=== PATIENT | male | born 1990 | race African-American/Black ===

== ENCOUNTER 2017-03-19 11:47 | Emergency (ER) | payer SELFPAY ==
[2017-03-19 11:52] VITALS: BP 147/72
[2017-03-19] MEDS ORDERED: IPRATROPIUM/ALBUTEROL 0.5-2.5 MG/3 ML AMPUL NEB ONE (13:02)
--- NOTE | 2017-03-19 13:04 | ER Document Report ---
ED General - General Chief Complaint: Flu Symptoms Stated Complaint: FLU LIKE SYMPTOMS Mode of Arrival: Ambulatory Information source: Patient, Parent TRAVEL OUTSIDE OF THE [place] IN LAST 30 DAYS: No - HPI Notes: 26 yr old with complaints of productive cough, myalgias, nasa congestion, ST x 1 week. Denies fevers, reports chills. denies any rashes. otc meds tried without relief. smoker. rashes. no flu shot. worse with time, nothing makes better. this provider did a rapid assessment of this patient, pt will be fully evaluated by another provider - Related Data Allergies/Adverse Reactions: No Known Allergies Allergy (Verified 03/19/17 11:47) Past Medical History - General Information source: Patient - Social History Smoking Status: Current Every Day Smoker Family History: None Review of Systems - Review of Systems Constitutional: No symptoms reported EENT: See HPI Cardiovascular: No symptoms reported Respiratory: No symptoms reported Gastrointestinal: No symptoms reported Genitourinary: No symptoms reported Male Genitourinary: No symptoms reported Musculoskeletal: No symptoms reported Skin: No symptoms reported Hematologic/Lymphatic: No symptoms reported Neurological/Psychological: No symptoms reported Physical Exam - Vital signs Vitals: Temp Pulse Resp BP Pulse Ox 98.9 F 91 18 147/72 H 96 03/19/17 11:50 03/19/17 11:50 03/19/17 11:50 03/19/17 11:50 03/19/17 11:50 - General General appearance: Appears well In distress: None - HEENT Nasal: Clear rhinorrhea - boggy turbinates - Respiratory Respiratory status: No respiratory distress Chest status: Nontender Breath sounds: Decreased air movement Chest palpation: Normal - Cardiovascular Rhythm: Regular Heart sounds: Normal auscultation Murmur: No Course - Vital Signs Vital signs: Temp Pulse Resp BP Pulse Ox 98.9 F 91 18 147/72 H 96 03/19/17 11:50 03/19/17 11:50 03/19/17 11:50 03/19/17 11:50 03/19/17 11:50 Discharge - Discharge Clinical Impression: Viral syndrome, Cough Condition: Good Disposition: HOME, SELF-CARE Instructions: Viral Syndrome ([facility]), Cough Suppressant & Expectorant Medications Additional Instructions: Viral Syndrome The physician has diagnosed a viral infection. Viruses not only cause "colds," but can cause many different symptoms including generalized aching, fever, headache, cough, diarrhea, nausea, vomiting, and fatigue. The treatment, for the most part, is simply relief of symptoms. This means that antibiotics are usually not given. Rest, fluids, pain medications and, occasionally, medication for the specific symptoms that are most bothersome will be prescribed. Use good handwashing to avoid passing the virus to others. Shared toys should be cleaned with disinfectant. Clean the toilets, sinks, and counter surfaces in bathrooms. Launder clothing in hot water. Contact the physician if you develop any new or unusual symptoms such as severe headache, stiff neck, high fever, chest pain, productive cough, or shortness of breath. You should be rechecked if you don't see marked improvement within seven to 10 days. Return immediately for any new or worsening symptoms. Follow up with primary care provider, call tomorrow to make followup appointment. Prescriptions: Benzonatate [Tessalon Perle 100 mg Capsule] 100 mg PO Q8HP PRN #40 cap PRN Reason: Albuterol Sulfate [Ventolin Hfa] 1 - 2 puff IH Q4 PRN #1 [id number] PRN Reason:
--- NOTE | 2017-03-19 13:46 | RADIOLOGY REPORT (SQ) ---
EXAM DESCRIPTION: CHEST PA/LAT COMPLETED DATE/TIME: 03/19/2017 1:17 pm REASON FOR STUDY: cough x 1 week with chills, fatigue COMPARISON: None. EXAM PARAMETERS: NUMBER OF VIEWS: two views TECHNIQUE: Digital Frontal and Lateral radiographic views of the chest acquired. RADIATION DOSE: NA LIMITATIONS: none FINDINGS: LUNGS AND PLEURA: No opacities, masses or pneumothorax. No pleural effusion. MEDIASTINUM AND HILAR STRUCTURES: No masses or contour abnormalities. HEART AND VASCULAR STRUCTURES: Heart normal size. No evidence for failure. BONES: No acute findings. HARDWARE: None in the chest. OTHER: No other significant finding. IMPRESSION: NO SIGNIFICANT RADIOGRAPHIC FINDING IN THE CHEST. TECHNICAL DOCUMENTATION: JOB ID: [id number] [employer]- All Rights Reserved
[2017-03-19 14:25] LABS: A TYPE INFLUENZA AG NEGATIVE (NEGATIVE); B INFLUENZA AG NEGATIVE (NEGATIVE)
== END 2017-03-19 14:37 | disposition home or self-care (01) ==
LOC: ER 11:47
DX: B34.9 Viral infection, unspecified (principal); R05 Cough; M79.1 Myalgia; R09.81 Nasal congestion; F17.200 Nicotine dependence, unspecified, uncomplicated
CPT/HCPCS: 94640; 99284; 87804; 71046; J7620

== ENCOUNTER 2019-02-16 16:10 | Emergency (ER) | payer SELFPAY ==
[2019-02-16 16:22] VITALS: BP 140/93
[2019-02-16] MEDS ORDERED: METOCLOPRAMIDE HCL ORAL SOLN 10 MG/10 ML UDCUP PO ONE (18:10)
[2019-02-16] MEDS ORDERED: MAG HYDROX/AL HYDROX/SIMETH SUSP 30 ML UDCUP PO ONE (18:10)
[2019-02-16] MEDS ORDERED: LIDOCAINE 2% VISCOUS SOLN 20 ML UDCUP PO ONE (18:10)
--- NOTE | 2019-02-16 18:13 | ER Document Report ---
ED Medical Screen (RME) - General Chief Complaint: Abdominal Pain Stated Complaint: STOMACH PAINS Time Seen by Provider: 02/16/19 17:59 Notes: Patient is a 28-year-old male presents emergency department with a chief complaint of epigastric pain. Patient reports he has had epigastric pain for about 2 weeks which is intermittent. Patient reports he was having some constipation in which he did take an enema for which did produce a bowel move ment yesterday. Patient reports he continues to have the abdominal pain. Patient reports that certain foods do worsen the epigastric pain in certain beverages or worsen as such as caffeine and soda. Patient states he does not drink alcohol but does smoke marijuana heavily and multiple times per day. Patient reports nausea and some episodes of vomiting. Patient denies fever. Patient reports earlier today he did vomit twice. TRAVEL OUTSIDE OF THE [place] IN LAST 30 DAYS: No - Related Data Allergies/Adverse Reactions: No Known Allergies Allergy (Verified 03/19/17 11:47) Past Medical History - Social History Frequency of alcohol use: None Drug Abuse: Marijuana Renal/ Medical History: Denies: Hx Peritoneal Dialysis Physical Exam - Vital signs Vitals: Temp Pulse Resp BP Pulse Ox 98.4 F 90 16 140/93 H 100 02/16/19 16:21 02/16/19 16:21 02/16/19 16:21 02/16/19 16:21 02/16/19 16:21 - Abdominal Inspection: Normal Distension: No distension Bowel sounds: Normal Tenderness: Tender - epigastric pain Organomegaly: No organomegaly Course - Re-evaluation Re-evalutation: 02/16/19 18:12 I have greeted and performed a rapid initial assessment of this patient. A comprehensive ED assessment and evaluation of the patient, analysis of test results and completion of the medical decision making process will be conducted by additional ED providers. - Vital Signs Vital signs: Temp Pulse Resp BP Pulse Ox 98.4 F 90 16 140/93 H 100 02/16/19 16:21 02/16/19 16:21 02/16/19 16:21 02/16/19 16:21 02/16/19 16:21
[2019-02-16 18:57] LABS: APPEARANCE,URINE SLIGHTLY-CLOUDY; BILIRUBIN,URINE NEGATIVE (NEGATIVE); COLOR,URINE YELLOW; GLUCOSE, URINE NEGATIVE (NEGATIVE); KETONES,URINE 20 mg/dL (NEGATIVE); LEUKOCYTE ESTERASE,URINE NEGATIVE (NEGATIVE); NITRITE,URINE NEGATIVE (NEGATIVE); PROTEIN,URINE 30 mg/dL (NEGATIVE); URINE SPECIFIC GRAVITY 1.026
[2019-02-16 19:01] LABS: ABSOLUTE BASOPHILS # (AUTO) 0.1 10^3/uL (0.0-0.2); ABSOLUTE EOSINOPHILS # (AUTO) 0.1 10^3/uL (0.0-0.6); ABSOLUTE LYMPHOCYTES (AUTO) 2.8 10^3/uL (0.5-4.7); ABSOLUTE MONOCYTES (AUTO) 0.6 10^3/uL (0.1-1.4); ABSOLUTE NEUT (AUTO) 4.9 10^3/uL (1.7-8.2); BASOPHILS % (AUTO) 0.7 % (0-2); EOSINOPHILS % (AUTO) 1.5 % (0-6); HEMATOCRIT 48.4 % (37.9-51.0); HEMOGLOBIN 16.6 g/dL (13.5-17.0); LYMPHOCYTES % (AUTO) 32.7 % (13-45); MEAN CORPUSCULAR HEMOGLOBIN 29.1 pg (27.0-33.4); MEAN CORPUSCULAR HGB CONC 34.3 g/dL (32.0-36.0); MEAN CORPUSCULAR VOLUME 85 fl (80-97); MONOCYTES % (AUTO) 6.8 % (3-13); PLATELET COUNT 254 10^3/uL (150-450); RED BLOOD COUNT 5.71 10^6/uL (4.35-5.55); RED CELL DISTRIBUTION WIDTH 13.5 % (11.5-14.0); SEGMENTED NEUTROPHILS % (AUTO) 58.3 % (42-78); TOTAL CELLS COUNTED % (AUTO) 100 %; WHITE BLOOD COUNT 8.4 10^3/uL (4.0-10.5)
[2019-02-16 19:15] LABS: ALKALINE PHOSPHATASE 73 U/L (38-126); ANION GAP 12 (5-19); ASPARTATE AMINO TRANSFERASE 22 U/L (17-59); BILIRUBIN,DIRECT 0.1 mg/dL (0.0-0.4); BILIRUBIN,TOTAL 0.5 mg/dL (0.2-1.3); BLOOD UREA NITROGEN 13 mg/dL (7-20); CALCIUM 9.7 mg/dL (8.4-10.2); CARBON DIOXIDE 29 mmol/L (22-30); CHLORIDE 97 mmol/L (98-107); GLUCOSE 96 mg/dL (75-110); POTASSIUM 4.4 mmol/L (3.6-5.0); TOTAL PROTEIN 7.2 g/dL (6.3-8.2)
[2019-02-16] MEDS ORDERED: DICYCLOMINE HCL 20 MG TABLET PO ONE (19:55)
--- NOTE | 2019-02-16 20:00 | ER Document Report ---
ED GI/ - General Chief Complaint: Abdominal Pain Stated Complaint: STOMACH PAINS Time Seen by Provider: 02/16/19 17:59 Notes: Patient is blind of thePatient is a 28-year-old male who presents to the emergency department with a chief complaint of epigastric pain. Patient states that his pain has been going on for the past 2 weeks. It is intermittent pain. Its dates that is worse after eating. Patient states he feels better after receiving GI cocktail in triage. Patient smokes marijuana daily. TRAVEL OUTSIDE OF THE [place] IN LAST 30 DAYS: No - Related Data Allergies/Adverse Reactions: No Known Allergies Allergy (Verified 03/19/17 11:47) Past Medical History - Social History Smoking Status: Current Every Day Smoker Frequency of alcohol use: None Drug Abuse: Marijuana Family History: None Patient has suicidal ideation: No Patient has homicidal ideation: No Renal/ Medical History: Denies: Hx Peritoneal Dialysis Review of Systems - Review of Systems Notes: REVIEW OF SYSTEMS: CONSTITUTIONAL : Denies recent illness. Denies recent unintentional weight loss. Denies fever, chills, or sweats. EENT: Denies eye, ear, throat, or mouth pain, discharge, or symptoms. Denies nasal or sinus congestion. CARDIOVASCULAR: Denies chest pain. RESPIRATORY: Denies shortness of breath, cough, congestion, difficulty breathing, or wheezing. GASTROINTESTINAL: See HPI. GENITOURINARY: Denies difficulty urinating, burning, blood in urine, urgency or frequency. MUSCULOSKELETAL: Denies neck and back pain. Denies joint pain or swelling. SKIN: Denies rash, itchiness, or lesions HEMATOLOGIC : Denies easy bruising or bleeding. LYMPHATIC: Denies swollen, painful, enlarged glands. NEUROLOGICAL: Denies no numbness or tingling denies weakness. Denies headache. Denies altered mental status. Denies alteration in speech. PSYCHIATRIC: Denies stress, anxiety, alteration in sleep patterns, or depression. All other systems reviewed and negative. Physical Exam - Vital signs Vitals: Temp Pulse Resp BP Pulse Ox 98.4 F 90 16 140/93 H 100 02/16/19 16:21 02/16/19 16:21 02/16/19 16:21 02/16/19 16:21 02/16/19 16:21 - Notes Notes: PHYSICAL EXAMINATION: GENERAL: Appears well, healthy, well-nourished, no acute distress. HEAD: Normocephalic, atraumatic. EYES: PERRL, conjunctiva normal, all extraocular movements intact, sclera nonicteric ENT: Moist mucous membranes. NECK: Supple, no noticeable swelling, redness, rash. Normal range of motion. LUNGS: Equal breath sounds bilaterally and clear to auscultation. No wheezes rales or rhonchi. CARDIOVASCULAR: S1-S2, regular rate, regular rhythm. Radial pulses 2+, normal. ABDOMEN: Normoactive bowel sounds. Soft, tender mid upper abdomen, no guarding, no rebound tenderness, and no masses palpated. EXTREMITIES: Normal strength and range of motion, no pitting or edema. No cyanosis. NEUROLOGICAL: Moves all extremities upon command. Strength 5/5 in all extremities. PSYCH: Normal mood, normal affect. SKIN: Warm, dry. No rash, lesions, ulcerations noted. Normal skin turgor. Course - Re-evaluation Re-evalutation: Patient presents with epigastric abdominal pain with associated reflux symptoms most consistent with likely gastritis. Patient has no focal abdominal tenderness on examination. Lipase is normal. No LFT changes. Based on history and exam, I do not suspect ACS, pulmonary embolus, SBO, mesenteric ischemia, acute pancreatitis, biliary pathology, or an abdominal aortic dissection. Patient has had improvement of symptoms here with a GI cocktail. At this time will discharge with return precautions and follow-up recommendations. Verbal discharge instructions given a the bedside and opportunity for questions given. Medication warnings reviewed. Patient is in agreement with this plan and has verbalized understanding of return precautions and the need for primary care follow-up in the next 24-72 hours. - Vital Signs Vital signs: Temp Pulse Resp BP Pulse Ox 98.4 F 90 16 140/93 H 100 02/16/19 16:21 02/16/19 16:21 02/16/19 16:21 02/16/19 16:21 02/16/19 16:21 - Laboratory Result Diagrams: 02/16/19 18:29 02/16/19 18:29 Laboratory results interpreted by me: 02/16/19 02/16/19 02/16/19 18:29 18:29 18:29 RBC 5.71 H Chloride 97 L Urine Protein 30 H Urine Ketones 20 H Urine Urobilinogen 4.0 H Discharge - Discharge Clinical Impression: Nausea Gastritis Qualifiers: Gastritis type: unspecified gastritis Chronicity: acute Gastritis bleeding: without bleeding Qualified Code(s): K29.00 - Acute gastritis without bleeding Abdominal pain Qualifiers: Abdominal location: epigastric Qualified Code(s): R10.13 - Epigastric pain Condition: Stable Disposition: HOME, SELF-CARE Additional Instructions: Your symptoms appear to be most consistent with stomach or upper intestinal irritation. Please begin taking famotidine 20 mg in the morning and 20 mg at night. This medicine can be purchased directly [id number]. You are also being sent home with Bentyl, medication for pain. You are also being sent home with Reglan, medication for nausea. You are also being sent home with Carafate, medication to help coat your stomach. You may also take medicine such as Pepto- Bismol or Tums to assist with your pain. Please return to emergency department immediately if you have worsening of your pain, shortness of breath, vomiting, become unable to exert yourself due to pain or difficulty breathing, you pass out, or have any pain that radiates into your arms, jaw, or back. Please also return if you have any additional symptoms that are concerning to you. All up with 1 of the clinics below. Please slowly stop smoking or marijuana. Prescriptions: Dicyclomine HCl [Bentyl 20 mg Tablet] 20 mg PO QIDP PRN #20 tablet PRN Reason: Sucralfate [Carafate 1 gm Tablet] 1 gm PO ACHS #120 tablet Famotidine [Pepcid 20 mg Tablet] 20 mg PO BID #60 tablet Metoclopramide HCl [Reglan 10 mg Tablet] 1 - 2 tab PO ASDIR PRN #25 tablet PRN Reason:
== END 2019-02-16 20:22 | disposition home or self-care (01) ==
LOC: ER 16:10
DX: K29.00 Acute gastritis without bleeding (principal); R11.0 Nausea; R10.13 Epigastric pain; R10.816 Epigastric abdominal tenderness; F12.10 Cannabis abuse, uncomplicated; F17.200 Nicotine dependence, unspecified, uncomplicated
CPT/HCPCS: 99284; 36415; 83690; 85025; 80053; 81001; J3490 ×2

== ENCOUNTER 2019-09-26 19:54 | Emergency (ER) | payer SELFPAY ==
--- NOTE | 2019-09-26 20:29 | ER Document Report ---
ED Medical Screen (RME) - General Chief Complaint: Syncope Stated Complaint: HEAD INJURY Time Seen by Provider: 09/26/19 20:20 Notes: Patient is a 28-year-old male, up-to-date with his immunizations who presents to the emergency department after syncopal episode. Patient states that he feels he got overheated while he was fishing and fell back and hit his head on metal box. Patient states that he feels he lost a little bit of consciousness, but states "not for very long." Patient was under the influence of marijuana today. Patient states he is up-to-date on his tetanus vaccine. Exam: Laceration noted to posterior head. I have greeted and performed a rapid initial assessment of this patient. A comprehensive ED assessment and evaluation of the patient, analysis of test results and completion of medical decision making process will be conducted by an additional ED providers. TRAVEL OUTSIDE OF THE [place] IN LAST 30 DAYS: No - Related Data Allergies/Adverse Reactions: No Known Allergies Allergy (Verified 09/26/19 20:20) Home Medications: denies Past Medical History - Social History Chew tobacco use (# tins/day): No Frequency of alcohol use: None Drug Abuse: Marijuana Renal/ Medical History: Denies: Hx Peritoneal Dialysis Physical Exam - Vital signs Vitals: Temp Pulse Resp BP Pulse Ox 98.1 F 81 16 112/67 97 09/26/19 20:11 09/26/19 20:11 09/26/19 20:11 09/26/19 20:11 09/26/19 20:11 Course - Vital Signs Vital signs: Temp Pulse Resp BP Pulse Ox 98.1 F 81 16 112/67 97 09/26/19 20:11 09/26/19 20:11 09/26/19 20:11 09/26/19 20:11 09/26/19 20:11
[2019-09-26 21:19] LABS: ABSOLUTE BASOPHILS # (AUTO) 0.1 10^3/uL (0.0-0.2); ABSOLUTE EOSINOPHILS # (AUTO) 0.3 10^3/uL (0.0-0.6); ABSOLUTE MONOCYTES (AUTO) 0.6 10^3/uL (0.1-1.4); HEMOGLOBIN 14.8 g/dL (13.5-17.0); TOTAL CELLS COUNTED % (AUTO) 100 %
[2019-09-26 21:32] LABS: ABSOLUTE LYMPHOCYTES (AUTO) 2.8 10^3/uL (0.5-4.7); ABSOLUTE NEUT (AUTO) 3.7 10^3/uL (1.7-8.2); BASOPHILS % (AUTO) 0.7 % (0-2); EOSINOPHILS % (AUTO) 3.6 % (0-6); HEMATOCRIT 43.8 % (37.9-51.0); LYMPHOCYTES % (AUTO) 38.2 % (13-45); MEAN CORPUSCULAR HEMOGLOBIN 28.9 pg (27.0-33.4); MEAN CORPUSCULAR HGB CONC 33.7 g/dL (32.0-36.0); MEAN CORPUSCULAR VOLUME 86 fl (80-97); MONOCYTES % (AUTO) 7.6 % (3-13); PLATELET COUNT 197 10^3/uL (150-450); RED BLOOD COUNT 5.11 10^6/uL (4.35-5.55); RED CELL DISTRIBUTION WIDTH 14.3 % (11.5-14.0); SEGMENTED NEUTROPHILS % (AUTO) 49.9 % (42-78); WHITE BLOOD COUNT 7.3 10^3/uL (4.0-10.5)
[2019-09-26 21:35] LABS: ALBUMIN 3.6 g/dL (3.5-5.0); ALKALINE PHOSPHATASE 85 U/L (38-126); ANION GAP 6 (5-19); ASPARTATE AMINO TRANSFERASE 20 U/L (17-59); BILIRUBIN,TOTAL 0.2 mg/dL (0.2-1.3); BLOOD UREA NITROGEN 18 mg/dL (7-20); CALCIUM 9.1 mg/dL (8.4-10.2); CARBON DIOXIDE 25 mmol/L (22-30); CHLORIDE 105 mmol/L (98-107); CREATINE KINASE 154 U/L (55-170); GLUCOSE 130 mg/dL (75-110); TOTAL PROTEIN 6.3 g/dL (6.3-8.2)
--- NOTE | 2019-09-26 21:35 | RADIOLOGY REPORT (SQ) ---
CT of the head: 09/26/2019 8:34 PM CDT HISTORY: 28-year-old patient with head trauma, headache, head laceration. COMPARISON: None available TECHNIQUE: Multiple axial contiguous images were obtained through the head without intravenous contrast administered. This exam was performed according to our departmental dose-optimization program, which includes automated exposure control, adjustment of the mA and/or KV according to the patient's size and/or use of iterative reconstruction technique. FINDINGS: The ventricles are within normal limits for size. Both orbits appear unremarkable. The mastoid air cells appear clear. The visualized paranasal sinuses appear clear. The calvarium is intact. No extra-axial fluid collection is seen. The casper-white matter differentiation is within normal limits. No midline shift or mass effect is apparent. There are no findings to suggest acute intracranial hemorrhage. IMPRESSION: No acute intracranial hemorrhage is seen.
--- NOTE | 2019-09-26 21:58 | EKG REPORT ---
SEVERITY:- NORMAL ECG - SINUS RHYTHM ST ELEV, PROBABLE NORMAL EARLY REPOL PATTERN : Confirmed by: Remi Flanagan MD 26-Sep-2019 21:58:11
--- NOTE | 2019-09-27 00:15 | ER Document Report ---
ED General - General Chief Complaint: Syncope Stated Complaint: HEAD INJURY Time Seen by Provider: 09/26/19 20:20 Mode of Arrival: Ambulatory Information source: Patient Notes: 09/26/19 20:22 - ED Nursing Note by MARY ALICE RICHARDS Num: [id number] : 1990 Patient Age: 28 pt comes to ed from home via pov brought by girlfriend for c/o syncopal episode at approx 2-3pm while out at sea fishing on boat. pt states that he passed out and fell backwards and hit head on metal box. pt states other boat members stated he was LOC for only a few seconds. pt denies vomiting. pt states he was very overheated prior to this episode. no slurred speech. no etoh today, +marijuana while on trip. Initialized on 09/26/19 20:22 - END OF NOTE Kathy mcmahon Addendum entered and electronically signed by KATHY LEWIS FNP 09/26/19 20:31: Course - Re-evaluation Re-evalutation: 09/26/19 20:31 Patient ended up hitting his head around 4:00 today. He took Tylenol prior to arrival. - Vital Signs Vital signs: Temp Pulse Resp BP Pulse Ox 98.1 F 81 16 112/67 97 09/26/19 20:11 09/26/19 20:11 09/26/19 20:11 09/26/19 20:11 09/26/19 20:11 Original Note: ED Medical Screen (RME) - General Chief Complaint: Syncope Stated Complaint: HEAD INJURY Time Seen by Provider: 09/26/19 20:20 Notes: Patient is a 28-year-old male, up-to-date with his immunizations who presents to the emergency department after syncopal episode. Patient states that he feels he got overheated while he was fishing and fell back and hit his head on metal box. Patient states that he feels he lost a little bit of consciousness, but states "not for very long." Patient was under the influence of marijuana today. Patient states he is up-to-date on his tetanus vaccine. my notes 28-year-old male arrives with laceration to left occipital scalp after he was fishing today and struck the back of his head on a metal box while he was feeling warm and overheated and under the influence of some marijuana today. He now feels sleepy but denies any headache or nuchal rigidity. His CT of head was within normal limits. His labs were within normal limits. Patient had Dermabond applied to his 2.5 cm scalp laceration with good approximation of wound edges. TRAVEL OUTSIDE OF THE [place] IN LAST 30 DAYS: No - HPI Onset: This afternoon Onset/Duration: Sudden Quality of pain: Achy Severity: Mild Pain Level: 1 Associated symptoms: Weakness Exacerbated by: Denies Relieved by: Denies Similar symptoms previously: No Recently seen / treated by doctor: No - Related Data Allergies/Adverse Reactions: No Known Allergies Allergy (Verified 09/26/19 20:20) Home Medications: denies Past Medical History - General Information source: Patient - Social History Smoking Status: Current Every Day Smoker Cigarette use (# per day): Yes Chew tobacco use (# tins/day): No Smoking Education Provided: Yes Frequency of alcohol use: None Drug Abuse: Marijuana Lives with: Family - 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 Family History: None, Reviewed & Not Pertinent Patient has suicidal ideation: No Patient has homicidal ideation: No Renal/ Medical History: Denies: Hx Peritoneal Dialysis Review of Systems - Review of Systems Constitutional: See HPI, Weakness EENT: No symptoms reported Cardiovascular: No symptoms reported Respiratory: No symptoms reported Gastrointestinal: No symptoms reported Genitourinary: No symptoms reported Male Genitourinary: No symptoms reported Musculoskeletal: No symptoms reported Skin: See HPI, Other - Laceration to left occipital scalp around 2-1/2 cm length but no active bleeding at time of my exam. This was approximately 0005 on Sep ust Hematologic/Lymphatic: No symptoms reported Neurological/Psychological: No symptoms reported Physical Exam - Vital signs Vitals: Temp Pulse Resp BP Pulse Ox 98.1 F 81 16 112/67 97 09/26/19 20:11 09/26/19 20:11 09/26/19 20:11 09/26/19 20:11 09/26/19 20:11 Interpretation: Normal - General General appearance: Alert - HEENT Head: Normocephalic, Atraumatic Eyes: Normal Pupils: PERRL Pharynx: Normal Neck: Normal - Respiratory Respiratory status: No respiratory distress Chest status: Nontender Breath sounds: Normal Chest palpation: Normal - Cardiovascular Rhythm: Regular Heart sounds: Normal auscultation Murmur: No - Abdominal Inspection: Normal Distension: No distension Bowel sounds: Normal Tenderness: Nontender Organomegaly: No organomegaly - Rectal Prostate: Other - deferred - Genitourinary Scrotum: Other - deferred - Back Back: Normal - Extremities General upper extremity: Normal inspection General lower extremity: Normal inspection - Neurological Neuro grossly intact: Yes Cognition: Normal Orientation: AAOx4 Garfield Coma Scale Eye Opening: Spontaneous Manpreet Coma Scale Verbal: Oriented Manpreet Coma Scale Motor: Obeys Commands Manpreet Coma Scale Total: 15 Speech: Normal Motor strength normal: LUE, RUE, LLE, RLE Sensory: Normal - Psychological Associated symptoms: Normal affect - Skin Skin Temperature: Warm Skin Moisture: Dry Course - Vital Signs Vital signs: Temp Pulse Resp BP Pulse Ox 98.1 F 81 16 112/67 97 09/26/19 20:11 09/26/19 20:11 09/26/19 20:11 09/26/19 20:11 09/26/19 20:11 - Laboratory Result Diagrams: 09/26/19 21:07 09/26/19 21:07 Laboratory results interpreted by me: 09/26/19 09/26/19 21:07 21:07 RDW 14.3 H Sodium 135.7 L Glucose 130 H Procedures - Laceration/Wound Repair Left Head Time completed: 00:35 Wound length (cm): 2.5 Wound's Depth, Shape: Linear Laceration pre-procedure: Chloraprep applied Anesthetic type: Other - none Wound explored: Clean Wound Debrided: Minimal Wound Repaired With: Dermabond Discharge - Discharge Clinical Impression: Fall Qualifiers: Encounter type: initial encounter Qualified Code(s): W19.XXXA - Unspecified fall, initial encounter Occipital scalp laceration Qualifiers: Encounter type: initial encounter Qualified Code(s): S01.01XA - Laceration without foreign body of scalp, initial encounter Condition: Good Disposition: HOME, SELF-CARE Additional Instructions: Keep wound clean and dry avoid combing hair around this area for at least 3 days. May wash gently the wound tomorrow and pat dry. Prescriptions: Cephalexin Monohydrate [Keflex 500 mg Capsule] 500 mg PO BID 5 Days #20 capsule Forms: Return to Work
[2019-09-27 01:37] VITALS: BP 127/68
== END 2019-09-27 01:34 | disposition home or self-care (01) ==
LOC: ER 19:54
DX: S01.01XA Laceration without foreign body of scalp, initial encounter (principal); W19.XXXA Unspecified fall, initial encounter; W22.8XXA Striking against or struck by other objects, initial encounter; Y93.19 Activity, other involving water and watercraft; Y92.814 Boat as the place of occurrence of the external cause; R55 Syncope and collapse; F12.10 Cannabis abuse, uncomplicated; R53.1 Weakness; F17.210 Nicotine dependence, cigarettes, uncomplicated
CPT/HCPCS: 36415; 70450; 80053; 82550; 85025; 93005; 93010; 99284